=== PATIENT | female | born 1960 | race Caucasian/White ===

== ENCOUNTER 2017-07-15 09:06 | Day surgery (SDC) | payer OTHER ==
[2017-07-15 10:18] VITALS: O2SAT 100
[2017-07-15] MEDS ORDERED: Propofol 10 mg/ml Inj (20 ML) ONE (10:26)
[2017-07-15 10:54] VITALS: TEMP 97.8
[2017-07-15 12:24] VITALS: BP 157/79; PULSE 62; RESP 11
== END 2017-07-15 12:21 | disposition home or self-care (01) ==
LOC: C.ENDO 09:06
PROVIDERS: ATTEND Internal Medicine
DX: Z12.11 Encounter for screening for malignant neoplasm of colon (principal); J45.909 Unspecified asthma, uncomplicated; E78.5 Hyperlipidemia, unspecified; I10 Essential (primary) hypertension; F32.9 Major depressive disorder, single episode, unspecified; Z80.0 Family history of malignant neoplasm of digestive organs; F17.210 Nicotine dependence, cigarettes, uncomplicated; K64.8 Other hemorrhoids; K63.5 Polyp of colon
CPT/HCPCS: 45380; 88305; J2704